=== PATIENT | male | born 1985 ===

== ENCOUNTER → 2024-01-28 | Outpatient (CLI) | payer BC ==
[2024-01-28 11:27] LABS: Hematocrit 42.6 % (41.0-53.0); Lymphocytes # (auto) 2.5 10 ^3/uL (0.4-5.4); Monocytes # (auto) 0.5 10 ^3/uL (0-1.3)
[2024-01-28 11:28] LABS: Basophils # (auto) 0.1 10 ^3/uL (0-0.2); Basophils % (auto) 0.7 % (0.0-2.0); Eosinophils # (auto) 0.4 10 ^3/uL (0-0.8); Eosinophils % (auto) 4.5 % (0.0-7.0); Hemoglobin 13.6 g/dL (13.5-17.5); Lymphocytes % (auto) 25.8 % (10.0-50.0); Mean Corpuscular Hemoglobin 23.6 pg (28.0-32.0); Mean Corpuscular Volume 73.6 fL (80.0-100.0); Monocytes % (auto) 5.3 % (0.0-12.0); Neutrophils # (auto) 6.3 10 ^3/uL (1.6-8.6); Neutrophils % (auto) 63.7 % (37.0-80.0); Nucleated Red Blood Cells % 0.2 %; Red Blood Cells 5.78 10^6/uL (4.5-5.90); Red Cell Distribution Width 15.3 % (11.8-14.3); White Blood Cell 9.8 10^3/uL (4.4-10.8)
[2024-01-28 11:31] LABS: Urine Blood Negative /uL (Negative); Urine Clarity Clear (Clear); Urine Color Colorless (Yellow); Urine Protein, UAD Negative (Negative); Urine Specific Gravity 1.013 (1.001-1.035); Urine Urobilinogen Normal (Negative)
[2024-01-28 12:10] LABS: Alanine Aminotransferase 22 U/L (7-40); Alkaline Phosphatase 86 U/L (46-116); Aspartate Aminotransferase 16 U/L (13-40); Calcium 9.4 mg/dL (8.5-10.1); Carbon Dioxide 27 mmol/L (20-30); Chloride 106 mmol/L (98-107); Glucose 81 mg/dL (74-106); Triglycerides 115 mg/dL (< 150)
[2024-01-28 12:11] LABS: Albumin 4.9 g/dL (3.2-4.8); Anion Gap 6 (5-15); Blood Urea Nitrogen 6 mg/dL (9-23); Cholesterol 143 mg/dL (< 200); Creatine Kinase IFCC 234 U/L (46-171); HDL Cholesterol 31 mg/dL (40-59); LDL Cholesterol 103 mg/dL (< 100); Potassium 3.4 mmol/L (3.5-5.1); Sodium 139 mmol/L (136-145)
[2024-01-28 12:12] LABS: Bilirubin, Total 0.8 mg/dL (0.2-1.0); Total Protein 7.8 g/dL (5.7-8.2)
[2024-01-28 12:25] LABS: Uric Acid 6.4 mg/dL (3.7-9.2)
[2024-01-28 12:26] LABS: Lipase 42 U/L (12-53)
[2024-01-28 12:36] LABS: Ferritin 28.3 ng/mL (22-322); Folate (Folic Acid) 10.3 ng/mL (>5.38)
== END | disposition home or self-care (01) ==
LOC: LAB 11:05
PROVIDERS: ATTEND Internal Medicine
DX: Z00.01 Encounter for general adult medical examination with abnormal findings (principal); I10 Essential (primary) hypertension
CPT/HCPCS: 36415; 80053; 80061; 81003; 82043; 82306; 82550; 82607; 82728; 82746; 82947; 83036; 83690; 84443; 84550; 85025

== ENCOUNTER → 2024-06-09 | Outpatient (CLI) | payer BC | END | disposition home or self-care (01) | LOC: XYW 12:17 | PROVIDERS: ATTEND Internal Medicine | DX: R00.0 Tachycardia, unspecified (principal) | CPT/HCPCS: 93306 ==

== ENCOUNTER → 2025-09-13 | Outpatient (CLI) | payer BC ==
[2025-09-13 11:30] LABS: Hematocrit 42.4 % (41.0-53.0); Hemoglobin 14.1 g/dL (13.5-17.5); Mean Corpuscular Hemoglobin 24.0 pg (28.0-32.0); Mean Corpuscular Volume 72.3 fL (80.0-100.0); Nucleated Red Blood Cells % 0.1 %
[2025-09-13 11:32] LABS: Urine Protein, UAD Negative (Negative)
[2025-09-13 11:59] LABS: Alanine Aminotransferase 23 U/L (7-40); Albumin 4.7 g/dL (3.2-4.8); Alkaline Phosphatase 92 U/L (46-116); Anion Gap 10 (5-15); BUN/Creatinine Ratio 10.8 (10.0-20.0); Blood Urea Nitrogen 10 mg/dL (9-23); Calcium 8.9 mg/dL (8.7-10.4); Carbon Dioxide 28 mmol/L (20-31); Chloride 101 mmol/L (98-107); Cholesterol 176 mg/dL (< 200); Glucose 87 mg/dL (74-106); Potassium 3.3 mmol/L (3.5-5.1); Sodium 139 mmol/L (136-145); Total Protein 8.2 g/dL (5.7-8.2); Triglycerides 124 mg/dL (< 150)
[2025-09-13 12:00] LABS: Bilirubin, Total 0.6 mg/dL (0.2-1.0)
[2025-09-13 12:02] LABS: HDL Cholesterol 35 mg/dL (40-59)
== END | disposition home or self-care (01) ==
LOC: LAB 10:59
PROVIDERS: ATTEND Internal Medicine
DX: I10 Essential (primary) hypertension (principal); Z00.01 Encounter for general adult medical examination with abnormal findings
CPT/HCPCS: 36415; 80053; 80061; 81001; 83036; 84439; 84443; 85025